=== PATIENT | female | born 1965 | race Caucasian/White ===

== ENCOUNTER 2022-01-06 05:04 | Emergency (ER) | payer OTHER, SELFPAY ==
--- NOTE | ~2022-01-06 | XR_ITS ---
EXAMINATION: XR chest 2V DATE: 01/06/2022 06:08 INDICATION: Cough and body aches TECHNIQUE: PA and lateral views of the chest were obtained. COMPARISON: Chest radiograph dated 01/16/2014 FINDINGS: New lingular opacities obscuring the left heart border which are concerning for pneumonia. Mild strea ky atelectasis at the lateral left upper lung zone. No pleural effusion or pneumothorax. The cardiome diastinal silhouette is normal. Old healed posterior right fourth rib fracture. Mild to moderate thor acic spondylosis. IMPRESSION: 1. Lingular pneumonia versus atelectasis. Reviewed, dictated and finalized at location A.
[2022-01-06 05:15] VITALS: BP 120/82; PULSE 105; RESP 18; TEMP 37.4; O2SAT 98
[2022-01-06 05:18] VITALS: O2SAT 100
--- NOTE | 2022-01-06 06:16 | ED.URI ---
HPI - URI/Sore Throat General Chief Complaint: Upper Respiratory Infection Stated Complaint: cough, bodyache Time Seen by Provider: 01/06/22 05:41 Source: patient History of Present Illness HPI Narrative: Patient presents with shortness of breath cough and body aches. Symptoms been present for the past 2 days getting progressively worse so she came to the ER for evaluation reports subjective fevers at home. Is nonproductive. Denies any nausea or vomiting she denies any known sick contacts. Related Data Allergies Allergy/AdvReac Type Severity Reaction Status Date / Time No Known Allergies Allergy Unknown Unverified 01/06/22 05:19 Review of Systems Review of Systems: CONSTITUTIONAL: Denies fever, chills, or sweats. EYES: Denies visual changes, redness, or discharge. ENT: Denies rhinorrhea, congestion, sore throat, or otalgia. CARDIOVASCULAR: Denies chest pain, palpitations, or edema. RESPIRATORY: Reports cough and shortness of breath GASTROINTESTINAL: Denies abdominal pain, nausea, vomiting, or diarrhea. GENITOURINARY: Denies dysuria or hematuria. SKIN: Denies rash or itching. MUSCULOSKELETAL: Denies back pain, focal joint pain NEUROLOGIC: Denies headache, numbness, dizziness, or weakness. PSYCHIATRIC: Denies anxiety or depression. All systems reviewed & are unremarkable except as noted in HPI and below PMFSH Past Medical History Medical History (Updated 01/06/22 @ 07:06 by Collin Dillon MD) Patient denies medical problems Social History Social History (Updated 01/06/22 @ 06:18 by Collin Dillon MD) Smoking status: Current every day smoker Exam Narrative: GENERAL: Well-appearing, well-nourished, and in no acute distress. HEAD: Normocephalic, atraumatic. EYES: PERRLA and EOMI. ENT: Nares clear, no rhinorrhea or epistaxis. Mucous membranes moist. NECK: Supple. No masses. No JVD CHEST: Focal wheezing noted in the left lung base HEART: Regular rate and rhythm. No murmur heard. Normal peripheral pulses. ABDOMEN: Soft, nontender, nondistended, normal active bowel sounds. EXTREMITIES: Normal range of motion. No edema. SKIN: Warm, dry, no rash. NEURO: No focal deficits. Alert and oriented x3. PSYCH: Normal mood and affect. Course Reevaluation(s) Reevaluation #1: Patient feeling improved after supportive therapy results and plan reviewed with patient. Patient is comfortable with outpatient plan Date: 01/06/22 Time: 06:44 Vital Signs Vital signs: Vital Signs Temperature 37.4 C 01/06/22 05:15 Pulse Rate 105 H 01/06/22 05:15 Respiratory Rate 18 01/06/22 05:15 Blood Pressure 120/82 01/06/22 05:15 Pulse Oximetry 98 01/06/22 05:15 Temperature 37.4 C 01/06/22 05:15 Pulse Rate 88 01/06/22 06:58 Respiratory Rate 18 01/06/22 06:58 Blood Pressure 121/80 01/06/22 06:58 Pulse Oximetry 98 01/06/22 06:58 MDM - URI/Sore Throat MDM Narrative Medical decision making narrative: H&P as above, vss, pt looks clinically well, exam with localized wheezing, labs clinically unremarkable, img question opacity at the left cardiac border, additional labs/img considered, symptomatic relief available as needed, on reevaluation pt continues to looks clinically well. Suspect developing pneumonia, dns severe sepsis, severe dehydration, pneumothorax. plan to tx/monitor as op w/ pcm f/u findings/plan discussed with pt, pt agree/comfortable with plan, return precautions given Lab Data Result diagrams: 01/06/22 06:12 01/06/22 06:12 Labs: Lab Results 01/06/22 01/06/22 01/06/22 Range/Units 06:12 06:12 06:12 WBC 10.4 H (4.5-10.0) K/mm3 RBC 4.23 (4.2-5.4) M/mm3 Hgb 13.2 (12.0-15.0) g/dL Hct 39.6 (37.0-47.0) % MCV 93.6 (80-100) fl MCH 31.2 (26-34) pg MCHC 33.3 (32-36) g/dl RDW 13.6 (11.5-14.5) % Plt Count 243 (150-375) k/mm3 MPV 8.7 (7.4-10.4) fl Immature Gran % (Auto) 0.3 (0-0.5) % Neut % (Auto) 65.5 (45.
[2022-01-06 06:17] LABS: Basophils Percent Auto 0.3 % (0.2-1.2); Eosinophils Absolute Auto 0.1 K/mm3 (0-0.3); Eosinophils Percent Auto 1.3 % (0-4.4); Hematocrit 39.6 % (37.0-47.0); Hemoglobin 13.2 g/dL (12.0-15.0); Immature Granulocyte Absolute 0.03 K/mm3 (0.00-0.031); Immature Granulocyte Percent A 0.3 % (0-0.5); Lymphocytes Absolute Auto 2.06 K/mm3 (0.9-3.2); Lymphocytes Percent Auto 19.9 % (18.3-44.2); Mean Corpuscular HGB Conc 33.3 g/dl (32-36); Mean Corpuscular Hemoglobin 31.2 pg (26-34); Mean Corpuscular Volume 93.6 fl (80-100); Mean Platelet Volume 8.7 fl (7.4-10.4); Monocytes Absolute Auto 1.3 K/mm3 (0.1-0.6); Monocytes Percent Auto 12.7 % (2.6-8.5); Neutrophils Absolute Auto 6.8 K/mm3 (1.3-6.7); Neutrophils Percent Auto 65.5 % (45.5-73.1); Platelet Count Result 243 k/mm3 (150-375); Red Blood Count 4.23 M/mm3 (4.2-5.4); Red Cell Distribution Width 13.6 % (11.5-14.5); White Blood Count 10.4 K/mm3 (4.5-10.0)
[2022-01-06 06:26] VITALS: BP 117/86; PULSE 90; RESP 18; O2SAT 98
[2022-01-06] MEDS: IPRATROPIUM BR 0.02% INH SOLN 0.5 MG/2.5 ML VIAL INHALATION (06:27)
[2022-01-06] MEDS: ALBUTEROL SULFATE NEB 2.5 MG/0.5 ML INH 5 MG INHALATION (06:28)
[2022-01-06 06:31] LABS: Alanine Aminotransferase 26 U/L (4-35); Albumin Level 4.1 g/dL (3.5-5.1); Alkaline Phosphatase 96 U/L (38-126); Anion Gap 7 mmol/L (8-16); Aspartate Amino Transferase 40 U/L (14-36); Bilirubin,Total 0.5 mg/dL (0.2-1.3); Blood Urea Nitrogen 14 mg/dL (7-17); Calcium 8.6 mg/dL (8.4-10.2); Carbon Dioxide 20 mmol/L (22-30); Chloride 105 mmol/L (98-107); Estimated CRCL calculation 88 ml/min; Estimated Glomerular Filt Rate > 60; Glucose 101 mg/dL (65-110); Potassium 4.5 mmol/L (3.4-5.0); Sodium 132 mmol/L (137-145)
[2022-01-06] MEDS: ACETAMINOPHEN 500 MG TABLET 1000 MG PO (06:55)
[2022-01-06] MEDS: AZITHROMYCIN 250 MG TABLET 500 MG PO (06:56)
[2022-01-06 06:58] VITALS: BP 121/80; PULSE 88; RESP 18; O2SAT 98
[2022-01-06 06:58] LABS: SARS-CoV-2 RNA PCR Positive
== END 2022-01-06 07:01 | disposition home or self-care (01) ==
PROVIDERS: Emergency Provider Emergency Medicine
DX: U07.1 COVID-19 (principal); J18.9 Pneumonia, unspecified organism; F17.200 Nicotine dependence, unspecified, uncomplicated
CPT/HCPCS: 36415; 71046; 80053; 85025; 87804; 94640; 99284; A9270; C9803; U0003; U0005